=== PATIENT | male | born 1945 | race Caucasian/White ===

== ENCOUNTER → 2019-02-21 | Outpatient (CLI) | payer MEDICARE ==
[2019-02-21 16:21] LABS: LDL Cholesterol,Calculated 95.6 mg/dL (0.0-131.0); VLDL Calculation 15.4 mg/dL (5.00-40.00)
== END | disposition home or self-care (01) ==
LOC: LABWHC1 07:45
PROVIDERS: ATTEND Internal Medicine Nephrology
DX: E78.00 Pure hypercholesterolemia, unspecified (principal); I25.10 Atherosclerotic heart disease of native coronary artery without angina pectoris; I10 Essential (primary) hypertension; J43.8 Other emphysema; I49.1 Atrial premature depolarization; K22.70 Barrett's esophagus without dysplasia; E11.42 Type 2 diabetes mellitus with diabetic polyneuropathy; T46.6X5A Adverse effect of antihyperlipidemic and antiarteriosclerotic drugs, initial encounter; Z79.4 Long term (current) use of insulin; Z87.891 Personal history of nicotine dependence; Z98.61 Coronary angioplasty status
CPT/HCPCS: 36415; 80061; 84450; 84460

== ENCOUNTER → 2019-07-24 | Outpatient (CLI) | payer MEDICARE ==
[2019-07-24 11:17] LABS: Appearance,Urine Clear (Clear); Bilirubin,Urine Negative (Negative); Blood,Urine Negative (Negative); Color,Urine Yellow; Glucose,Urine (UA) Negative (Negative); Ketones,Urine Negative (Negative); Leukocyte Esterase,Urine Negative (Negative); Nitrite,Urine Negative (Negative); PH, Urine 6.5 (5.0-8.0); Protein,Urine Negative (Negative); Specific Gravity,Urine 1.013 (1.001-1.035); Urobilinogen,Urine <2.0 mg/dL (<2.0)
[2019-07-24 11:35] LABS: INR 0.9 (<1.2); Partial Thromboplastin Time 22.5 sec (22.0-30.0); Prothrombin Time 10.2 sec (9.0-12.0)
[2019-07-24 11:37] LABS: ALT 34 U/L (21-72); AST 26 U/L (17-59); African American GFR (CKD) >90 (>60 ml/min/1.73 sqM); Albumin 4.5 g/dL (3.5-5.0); Alkaline Phosphatase 72 U/L (38-126); Anion Gap 13 mmol/L; Blood Urea Nitrogen 17 mg/dL (9-20); Carbon Dioxide 23 mmol/L (22-30); Chloride 104 mmol/L (98-107); Glucose 138 mg/dL (74-99); Sodium 140 mmol/L (137-145); Total Bilirubin 0.5 mg/dL (0.2-1.3); Total Protein 7.5 g/dL (6.3-8.2)
[2019-07-24 13:45] LABS: HCT 45.9 % (39.0-53.0); HGB 15.1 gm/dL (13.0-17.5); MCH 31.7 pg (25.0-35.0); MCHC 32.8 g/dL (31.0-37.0); MCV 96.6 fL (80.0-100.0); Mean Platelet Volume 7.7; Platelet Count 295 k/uL (150-450); RBC 4.75 m/uL (4.30-5.90); RDW 12.8 % (11.5-15.5); WBC 8.5 k/uL (3.8-10.6)
== END | disposition home or self-care (01) ==
LOC: LABPAT 10:20
PROVIDERS: ATTEND Orthopaedic Surgery
DX: Z01.812 Encounter for preprocedural laboratory examination (principal); Z01.818 Encounter for other preprocedural examination; M17.11 Unilateral primary osteoarthritis, right knee
CPT/HCPCS: 80053; 81003; 85027; 85610; 85730; 87070; 93005

== ENCOUNTER 2019-08-18 10:07 | Day surgery (SDC) | payer MEDICARE ==
[2019-07-24 11:53] VITALS: BMI 28.8
[~2019-08-18 10:07] MED LIST: ACETAMINOPHEN TAB 500 MG TAB PO ONE; DEXAMETHASONE SOD PHOSPHATE 10 MG/ML 1 ML VIAL IV ONE; HYDROmorphone 0.5 MG/0.5 ML SYRINGE IVP PRN; LACTATED RINGERS 1,000 ML IV SCH; MELOXICAM 7.5 MG TAB PO ONE; MIDAZOLAM 2 MG/2 ML VIAL IV PRN; ONDANSETRON 4 MG/2 ML VIAL IVP ONE; ROPIVACAINE 246.25 MG, EPINEPHrine 0.5 MG, KETOROLAC 30 MG, cloNIDine HCL/PF 80 MCG, WA... MISCELLANE ONE; TRANEXAMIC ACID 1,000 MG in SODIUM CHLORIDE 0.9% 100 ML IVPB ONE; VANCOMYCIN 1,250 MG in SODIUM CHLORIDE 0.9% 250 ML IVPB ONE
[2019-08-18 10:57] LABS: Glucose,Whole Blood 120 mg/dL (75-99)
[2019-08-18] MEDS ORDERED: LIDOCAINE 1% 20 ML VIAL (10MG/ML) FOR IV START INTRADERMA ONE (11:00)
[2019-08-18] MEDS ORDERED: fentaNYL (PF) 50 MCG/ML 2 ML AMP IV ONE (11:31)
[2019-08-18] MEDS ORDERED: SODIUM CHLORIDE 0.9% 100 ML BAG ONE (12:38)
[2019-08-18] MEDS ORDERED: fentaNYL (PF) 50 MCG/ML 2 ML AMP ONE (12:38)
[2019-08-18] MEDS ORDERED: SUCCINYLCHOLINE CHLORIDE VIAL 200 MG/10 ML VIAL IV ONE (12:38)
[2019-08-18] MEDS ORDERED: PROPOFOL 10 MG/ML 20 ML VIAL IV ONE (12:38)
[2019-08-18] MEDS ORDERED: NEOSTIGMINE 1 MG/ML 10 ML VIAL ONE (12:38)
[2019-08-18] MEDS ORDERED: MIDAZOLAM 2 MG/2 ML VIAL ONE (12:38)
[2019-08-18] MEDS ORDERED: ROCURONIUM BROMIDE 10 MG/ML 10 ML VIAL IV ONE (12:38)
[2019-08-18] MEDS ORDERED: TRANEXAMIC ACID 1,000 MG/10 ML VIAL ONE (12:38)
[2019-08-18] MEDS ORDERED: LIDOCAINE 1% INJ 10MG/ML (20 ML MDV) ONE (12:38)
[2019-08-18] MEDS ORDERED: GLYCOPYRROLATE 0.2 MG/ML 2 ML VIAL ONE (12:38)
[2019-08-18] MEDS ORDERED: ROPIVACAINE 0.2%-NS ON-Q PUMP 1,090 MG, EMPTY PAIN BALL 1 EACH MISCELLANE PRN (12:39)
[2019-08-18] MEDS ORDERED: ceFAZolin 3,000 MG in SODIUM CHLORIDE 0.9% IRRIGATIO 3,000 ML IRRIGATION ONE (12:42)
--- NOTE | 2019-08-18 12:42 | P.ANPRN ---
Procedure Note - Anesthesia - Nerve Block Performed Right Adductor Canal Infusion Time Out Performed: Yes Date of Procedure: 08/18/19 Procedure Start Time: :30 Procedure Stop Time: :42 Location of Patient Procedure: PreOp Indication: Acute Post-Operative Pain, Requested by Surgeon Specifically requested for management of pain by DrKyle: Aleksandr Steward Sedation Type: Sedate with meaningful contact maintained Preparation: Sterile Prep Position: Supine Catheter Depth at Skin (cm): 6 Catheter: Indwelling Needle Types: Pajunk Needle Gauge: 18 Ultrasound used to visualize needle placement: Yes Ultrasound used to observe medication spread: Yes Injectate: 0.5% Ropivacaine (see comment for volume) (20 cc) Blood Aspirated: No Pain Paresthesia on Injection Noted: No Resistance on Injection: Normal Image Stored and Saved: Yes Events: Uneventful and Well Tolerated
[2019-08-18] MEDS ORDERED: SODIUM CHLORIDE 0.9% 100 ML with ceFAZolin 2,000 MG IV ONE ×2 (13:05)
[2019-08-18] MEDS ORDERED: LACTATED RINGERS 1,000 ML IV ONE (14:26)
--- NOTE | 2019-08-18 14:33 | P.OP ---
Date of Procedure: 08/18/19 Procedure(s) Performed: PREOPERATIVE DIAGNOSIS: Right knee severe osteoarthritis with genu varum POSTOPERATIVE DIAGNOSIS: Right knee severe osteoarthritis with genu varum OPERATION: Right knee cemented total replacement arthroplasty. ANESTHESIA: Spinal ESTIMATED BLOOD LOSS: 50 ml. HOME SALES SERVICE PROFESSIONAL: Ally Lawton PA-C (assistance with: patient positioning, retraction, exposure, hemostasis, leg positioning, implantation, irrigation, closure, dressing) COMPLICATIONS: None apparent. COMPONENTS IMPLANTED: Persona system from [employer] INDICATIONS: Mr. Cordero is a 74-year-old healthy male with a history of right knee osteoarthritis. The patient's knee is end-stage, and conservative management has failed. The operation of knee replacement has been discussed at length in the office, as well as potential risks and complications. These are inclusive of, but not limited to: bleeding, infection, scarring, discomfort, blood vessel and nerve damage, need for further surgery, failure to relieve symptoms, persistence, recurrence, or worsening of problems, loosening, dislocation, wear, blood clot, pulmonary embolism, , gait dysfunction, stiffness, and other risks as discussed in the office. The patient elects to proceed and the consent form has been signed. PROCEDURE: The patient was taken to the operating room and positioned on the operating room table in the supine position. Anesthesia was initiated. Care was taken to make sure that all pressure points were adequately padded. The operative lower extremity was prepped and draped in the usual aseptic fashion using ChloraPrep. Ioban drape was used for the case and the patient received intravenous antibiotics within one hour of the incision. A pneumotourniquet and leg estrada were used for the case. The limb was exsanguinated with an Esmarch bandage and the tourniquet was inflated to 350 mmHg. Time-out was called confirming the patient's identity, side, procedure and administration of antibiotics and tranexamic acid. The incision was then created midline directly over the knee, carried down through skin and into the subcutaneous tissues and down to fascia. Full thickness subcutaneous medial flap was developed. Medial parapatellar arthrotomy was performed and the interior of the knee was inspected. There was end-stage osteoarthritis of the knee with a mild to moderate genu varum type deformity. The fat pad was excised and proximal medial release on the tibia was completed using meticulous dissection and a curved osteotome. The anterior cruciate ligament was taken down. Note was made of significant attrition of the anterior and significant degenerative appearance of the cruciate ligaments. The exposure was excellent. The knee was flexed 90 degrees and the patella was everted. A spot was chosen on the femur approximately 1 cm anterior to the posterior cruciate ligament insertion and an intramedullary hole was created within the femur. The intramedullary guide was then set to 5 degrees of valgus. The distal cutting block was attached and pinned into position. An appropriate amount of distal femoral resection was set. The oscillating saw was then used to make the distal femoral cut. This cut was confirmed to be flat with the flat end of an osteotome. The retractors were placed around the tibia and the tibial surface was addressed. The angle and depth of resection was adjusted using an extramedullary cutting guide. The guide had a built-in 3 degree posterior slope cut. Once the cutting guide was adjusted appropriately and in line with the axis of the tibia and confirmed to be in good position in relation to the second metatarsal and transmalleolar axis, the tibial cut was then created with protection of the posterior neurovascular structures and the collateral ligaments. The tibial cut surface was removed and sized. Femoral sizing was then accomplished using anterior referencing. Care was taken to analyze the posterior condyles for signs of deficiency or severe wear, and adjustments to the guide were made, as appropriate. 3 degree external rotation pins were placed. The cutting jig for the femur was applied to these pins. The planned cuts were further analyzed prior to performing them with the oscillating saw. No femoral notching was produced. Bone fragments were removed and the cut surfaces were finished, as necessary, with a reciprocating saw. Spacer block technique was then used to confirm that the flexion and extension gaps were equal. Soft tissue releases and adjustment of the tibial and/or femoral cuts were made, as necessary, until the gaps were equal. This included release of the posterior cruciate ligament, which was excessively tight in this patient. The femur was then further finished for a posterior cruciate ligament substituting component. Patellar resurfacing was performed using a reamer. The size of the required patellar component was estimated and the patellar surface was then reamed down to a residual thickness which would recreate the [place] thickness with the component. The exact placement of the patellar component was adjusted for position based on preoperative x-rays and intraoperative findings. Prior to placing trial components, anesthetic solution consisting of ropivicaine with epinephrine, ketorolac, and clonidine was injected carefully and methodically in a grid pattern using aspiration technique into the soft tissue around the knee circumferentially, starting with the deeper tissues first and progressing to fascia, and then finally the skin/subcutaneous tissue. Particular care was taken when injecting the posterior capsule. The trial components were inserted. The tibial tray was allowed to self center and the patella was noted to track very well. The position of the tibial component was marked and the tibia was then finished for a stemmed tibial component. Cement was mixed on the back table and applied to the final components. Trial components were removed and the cut surfaces of the bone were pulse lavaged thoroughly and dried. Cement was then applied to the tibial surface and pressurized into the surface using finger pressurization technique. The tibial component was then applied and excess cement was removed after it was impacted securely and noted to be flush with the cut surface. In similar fashion, the cement was applied to the cut femoral surface, pressurized in using finger pressurization and the component was impacted into place. Excess cement was removed. The polyethylene spacer was then implanted and locked into position. The patellar component was then applied in similar technique and a patellar clamp was used to hold the patella in place as the cement hardened. Once the cement had fully hardened, the knee was reinspected. Any other cement extrusion was removed and final kinematic testing showed range of motion from 0 to 130 degrees with excellent stability, both medially and laterally and appropriate alignment of the leg. Patellar tracking was excellent. The knee was then thoroughly pulse lavaged with normal saline. The tourniquet was deflated and hemostasis was obtained with electrocautery and IV tranexamic acid, 1 g given at the start of the operation and 1 g at the start of closure. Closure was with #2 Ethibond in the fascia/capsule and supplemented with #2 Quill, 2-0 Vicryl suture was used for the subcutaneous tissues and 3-0 Quill for the skin. Dermabond/Steri-Strips were then applied. A lightly compressive dressing was applied using Webril and an Filemon wrap. The patient was then transferred to stretcher and taken to the recovery room in stable condition. Sponge and needle counts were correct.
[2019-08-18] MEDS ORDERED: MAGNESIUM HYDROXIDE 2,400 MG/10 ML CUP PO PRN (15:00)
[2019-08-18] MEDS ORDERED: NALOXONE 0.4 MG/ML 1 ML VIAL IV PRN (15:00)
[2019-08-18] MEDS ORDERED: ONDANSETRON 4 MG/2 ML VIAL IVP PRN (15:00)
[2019-08-18] MEDS ORDERED: HYDROmorphone 0.5 MG/0.5 ML SYRINGE IVP PRN ×3 (15:00)
[2019-08-18] MEDS ORDERED: HYDROcodone/APAP 7.5-325MG 1 EACH TAB PO PRN (15:00)
[2019-08-18] MEDS ORDERED: NA PHOS,M-B/NA PHOS,DI-BA 133 ML ENEMA RECTAL PRN (15:00)
[2019-08-18] MEDS ORDERED: TEMAZEPAM 15 MG CAP PO PRN (15:00)
[2019-08-18] MEDS ORDERED: BISACODYL 10 MG SUPP RECTAL PRN (15:00)
--- NOTE | 2019-08-18 15:20 | XR ---
EXAMINATION TYPE: XR knee limited RT DATE OF EXAM: 08/18/2019 COMPARISON: NONE TECHNIQUE: Two views submitted HISTORY: Post op FINDINGS: There is a prosthetic knee in near anatomic alignment. There is soft tissue edema and emphysema. Di ffuse osteopenia noted spurring along the upper margin of the patella. IMPRESSION: 1. Postoperative change. Appears in near-anatomic alignment
[2019-08-18 15:36] LABS: Glucose,Whole Blood 132 mg/dL (75-99)
[2019-08-18] MEDS: LACTATED RINGERS 1,000 ML IV SCH (15:49)
[2019-08-18] MEDS ORDERED: IPRATROPIUM-ALBUTEROL 3 ML NEB INHALATION PRN (19:19)
[2019-08-18 20:53] LABS: Glucose,Whole Blood 196 mg/dL (75-99)
[2019-08-18] MEDS ORDERED: SENNOSIDES-DOCUSATE SODIUM 1 EACH TAB PO SCH (21:00)
[2019-08-18] MEDS: ASPIRIN 325 MG TAB PO SCH (21:04)
[2019-08-18] MEDS: amLODIPine 2.5 MG TAB PO SCH (21:04)
[2019-08-18] MEDS: INSULIN ASPART (NovoLOG) 100 UNIT/ML VIAL SQ SCH (21:04)
[2019-08-18] MEDS: PANTOPRAZOLE 40 MG TABLET PO SCH (22:04)
--- NOTE | 2019-08-18 23:20 | P.CONS ---
History of Present Illness - Reason for Consult Consult date: 08/18/19 medical management of DM, htn, copd post operatively Requesting physician: Aleksandr Steward - Chief Complaint post right TKA - History of Present Illness 74 year old male with PMHx of DM, HTN, COPD presented for scheduled right total knee arthroplasty , tolerated procedure well, with no observed immediate post operative complications. He denies any chest pain , trouble breathing, headache, fever, chills, abd pain. Currently reports pain well tolerated. He tolerated PO intake. Review of Systems Pertinent positives as noted in HPI. All other systems were reviewed and are negative Past Medical History Past Medical History: Coronary Artery Disease (CAD), COPD, Diabetes Mellitus, GERD/Reflux, Hyperlipidemia, Hypertension, Pneumonia Additional Past Medical History / Comment(s): sinus arrythmia History of Any Multi-Drug Resistant Organisms: None Reported Past Surgical History: Heart Catheterization, Heart Catheterization With Stent, Orthopedic Surgery, Tonsillectomy Additional Past Surgical History / Comment(s): heart cath x4,heart stent x1,alexy knee arthroscopies,cervical fusion,lt wrist foreign matter removed,nasal repair,finger repairs Past Anesthesia/Blood Transfusion Reactions: No Reported Reaction Additional Past Anesthesia/Blood Transfusion Reaction / Comm: no hx blood transfusion Date of Last Stent Placement:: 2000 Past Psychological History: No Psychological Hx Reported Smoking Status: Former smoker Past Alcohol Use History: None Reported Additional Past Alcohol Use History / Comment(s): quit smoking 2000,smoked 35 yrs 2ppd Past Drug Use History: None Reported - Past Family History Mother Family Medical History: Congestive Heart Failure (CHF), Coronary Artery Disease (CAD), Diabetes Mellitus, Renal Disease Additional Family Medical History / Comment(s): CABG Father Family Medical History: Coronary Artery Disease (CAD) Additional Family Medical History / Comment(s): asbestos plaque on lungs,CABG Sister(s) Family Medical History: Cancer Additional Family Medical History / Comment(s): multiple myeloma Medications and Allergies Home Medications Medication Instructions Recorded Confirmed Type Aspirin 81 mg PO DAILY 07/24/19 08/18/19 History Lansoprazole 30 mg PO BID 07/24/19 08/18/19 History Metoprolol Succinate (ER) [Toprol 50 mg PO QAM 07/24/19 08/18/19 History Xl] Nitroglycerin Sl Tabs [Nitrostat] 0.4 mg SUBLINGUAL Q5M PRN 07/24/19 08/18/19 History Quinapril HCl [Accupril] 20 mg PO QAM 07/24/19 08/18/19 History amLODIPine [Norvasc] 2.5 mg PO BID 07/24/19 08/18/19 History metFORMIN HCL [Glucophage] 500 mg PO BID 07/24/19 08/18/19 History Multivitamins, Thera [Multivitamin 1 tab PO DAILY 07/28/19 08/18/19 History (formulary)] Aspirin 325 mg PO BID #1 tab 08/18/19 Rx HYDROcodone/APAP 7.5-325MG [[place] 1 - 2 tab PO Q4-6H PRN #50 tab 08/18/19 Rx 7.5-325] Rosuvastatin Calcium [Crestor] 5 mg PO WEEKLY 08/18/19 08/18/19 History Sennosides-Docusate Sodium 1 tab PO BID #60 tablet 08/18/19 Rx [Senokot-S] Allergies Allergy/AdvReac Type Severity Reaction Status Date / Time barley Allergy per alg Verified 08/18/19 10:21 testing bee venom protein (honey bee) Allergy Swelling Verified 08/18/19 10:21 corn Allergy per alg Verified 08/18/19 10:21 testing hops Allergy per alg Verified 08/18/19 10:21 testing insect venom Allergy Swelling Verified 08/18/19 10:21 shellfish derived Allergy Itching Verified 08/18/19 10:21 Sulfa (Sulfonamide Allergy Nausea & Verified 08/18/19 10:21 Antibiotics) Vomiting Physical Exam Vitals: Vital Signs Temp Pulse Pulse Resp BP BP Pulse Ox 08/18/19 17:48 100 133/72 08/18/19 17:34 97 143/82 08/18/19 17:03 78 128/65 08/18/19 16:47 73 137/75 08/18/19 16:32 78 146/81 08/18/19 16:17 75 127/77 08/18/19 16:10 73 16 142/76 92 L 08/18/19 16:03 77 142/76 08/18/19 15:45 60 18 147/75 96 08/18/19 15:30 60 16 145/69 100 08/18/19 15:15 71 16 133/63 100 08/18/19 15:09 18 100 08/18/19 15:00 97.0 F L 70 16 122/61 96 08/18/19 10:20 97 F L 66 16 132/81 94 L Intake and Output 08/18/19 08/18/19 08/18/19 06:59 14:59 22:59 Intake Total 1651 470 Output Total 50 Balance 1601 470 Intake: IV 1651 150 Oral 320 Output: Estimated Blood Loss 50 Other: Weight 88 kg Constitutional: No acute distress, conversant, pleasant Eyes: Anicteric sclerae, moist conjunctiva, no lid-lag Pupils equal round reactive to light ENMT: NC/AT Oropharynx clear, no erythema, exudates Neck: Supple, FROM, no masses, or JVD No carotid bruits No thyromegaly Lungs: Clear to auscultation Clear to percussion Normal respiratory effort, no accessory muscle use Cardiovascular: Heart regular in rate and rhythm, No murmurs, gallops, or rubs No peripheral edema Abdominal: Soft Nontender, no guarding, rebound or rigidity Abdomen moving with respiration Normoactive bowel sounds No hepatomegaly, No splenomegaly No palpable mass No abdominal wall hernia noted Skin: Normal temperature, tone, texture, turgor No induration No subcutaneous nodules No rash, lesions No ulcers Extremities: No digital cyanosis No clubbing Pedal pulses intact and symmetrical Radial pulses intact and symmetrical No calf tenderness Psychiatric: Alert and oriented to person, place and time Appropriate affect fair judgment Neuro Muscles Strength 5/5 in both upper extremities and left lower extremity , otherwise limited exam over right lower extremity due to surgery Sensation to light touch grossly present throughout Cranial nerves II-XII grossly intact No focal sensory deficits Lymphatics: no palpable cervical or supraclavicular , or inguinal lymph nodes Results Labs: Abnormal Lab Results - Last 24 Hours (Table) 08/18/19 08/18/19 Range/Units 10:46 15:33 POC Glucose (mg/dL) 120 H 132 H (75-99) mg/dL Assessment and Plan Assessment: 74-year-old male with history of diabetes, hypertension, COPD. Admitted for right total knee arthroplasty medicine consulted for postoperative management of diabetes and hypertension. Patient doing well tolerate the procedure well no observed immediate postoperative complications Plan: Right knee degenerative joint disease status post total knee arthroplasty postoperative day 0 DVT prophylaxis and pain management per orthopedics Diabetes mellitus slightly elevated blood sugar Patient on oral hypoglycemics, will hold for now. Hold metformin risk of lactic acidosis Start patient on insulin sliding scale Hypertension currently controlled Continue home medications COPD currently compensated and stable When necessary DuCeleste's Encourage incentive spirometry Check morning labs CBC and renal function and electrolytes code status , full code Thank you for allowing us to participate in the care of this patient. Do not hesitate to contact us with questions. Someone can be reached from the [facility] [place] hospitalist group at all hours of the day at [phone].
[2019-08-19] MEDS: LACTATED RINGERS 1,000 ML IV SCH ×2 (01:19→12:07)
[2019-08-19 07:15] LABS: Glucose,Whole Blood 121 mg/dL (75-99)
[2019-08-19] MEDS: INSULIN ASPART (NovoLOG) 100 UNIT/ML VIAL SQ SCH ×2 (07:18→12:07)
[2019-08-19 07:26] LABS: African American GFR (CKD) >90 (>60 ml/min/1.73 sqM); Anion Gap 9 mmol/L; Blood Urea Nitrogen 16 mg/dL (9-20); Calcium 8.9 mg/dL (8.4-10.2); Carbon Dioxide 25 mmol/L (22-30); Chloride 106 mmol/L (98-107); Glucose 121 mg/dL (74-99); Potassium 4.5 mmol/L (3.5-5.1); Sodium 140 mmol/L (137-145)
[2019-08-19 07:31] LABS: Basophils % (A) 0 %; Eosinophils # (A) 0.1 k/uL (0-0.7); Eosinophils % (A) 0 %; HCT 39.5 % (39.0-53.0); HGB 12.9 gm/dL (13.0-17.5); Lymphocytes # (A) 2.1 k/uL (1.0-4.8); Lymphocytes % (A) 13 %; MCH 31.8 pg (25.0-35.0); MCHC 32.5 g/dL (31.0-37.0); MCV 97.6 fL (80.0-100.0); Mean Platelet Volume 6.9; Monocytes # (A) 0.8 k/uL (0-1.0); Monocytes % (A) 5 %; Neutrophils # (A) 13.2 k/uL (1.3-7.7); Neutrophils % (A) 81 %; Platelet Count 239 k/uL (150-450); RBC 4.05 m/uL (4.30-5.90); RDW 12.7 % (11.5-15.5); WBC 16.4 k/uL (3.8-10.6)
[2019-08-19 07:54] VITALS: BP 121/69; PULSE 79; RESP 17; TEMP 98.7
[2019-08-19] MEDS ORDERED: LISINOPRIL 20 MG TAB PO SCH (09:00)
[2019-08-19] MEDS ORDERED: METOPROLOL SUCCINATE (ER) 50 MG TAB.ER.24H PO SCH (09:00)
[2019-08-19] MEDS ORDERED: MELOXICAM 7.5 MG TAB PO SCH (09:00)
[2019-08-19] MEDS: ASPIRIN 325 MG TAB PO SCH (09:28)
[2019-08-19] MEDS: amLODIPine 2.5 MG TAB PO SCH (09:30)
[2019-08-19] MEDS: PANTOPRAZOLE 40 MG TABLET PO SCH (09:30)
--- NOTE | 2019-08-19 10:20 | P.PN ---
Subjective Progress Note Date: 08/19/19 Patient was seen and examined at the bedside on 08/19. He reported no pain and was in good spirits. He denied any additional complaints and is eager to be discharged to continue with his daily activities. He denied chest pain, SOB, fever, chills, nausea, or vomiting. Objective - Vital Signs Vital signs: Vital Signs Temp 98.7 F 08/19/19 07:00 Pulse 79 08/19/19 07:00 Resp 17 08/19/19 07:00 BP 121/69 08/19/19 07:00 Pulse Ox 93 L 08/19/19 07:00 Intake & Output 08/18/19 08/19/19 08/19/19 18:59 06:59 18:59 Intake Total 2121 Output Total 50 Balance 2070 Weight 88 kg Intake: IV 1801 Oral 320 Output: Estimated Blood Loss 50 Other: Voiding Method Toilet # Voids 1 - Exam General: Non-toxic, in no acute distress, appears stated age, overweight HEENT: NC/AT, anicteric sclerae, moist conjunctiva, no lid-lag, PERRLA Cardiovascular: S1/S2 wnl, no murmurs, rubs, or gallops Lungs: Clear to auscultation, normal respiratory effort, no accessory muscle use Abdominal: Soft, non-tender, non-distended, no guarding, rebound, or rigidity Skin: Warm, dry Extremities: No edema or contractures, R knee post-surgical, dressing in place, clean and dry Psychiatric: Alert and oriented to person, place and time, appropriate affect Neuro: CN II-XII grossly intact, no focal neuro deficits - Labs CBC & Chem 7: 08/19/19 06:48 08/19/19 06:48 Labs: Abnormal Lab Results - Last 24 Hours (Table) 08/18/19 08/18/19 08/18/19 Range/Units 10:46 15:33 20:51 WBC (3.8-10.6) k/uL RBC (4.30-5.90) m/uL Hgb (13.0-17.5) gm/dL Neutrophils # (1.3-7.7) k/uL Glucose (74-99) mg/dL POC Glucose (mg/dL) 120 H 132 H 196 H (75-99) mg/dL 08/19/19 08/19/19 08/19/19 Range/Units 06:48 06:48 07:13 WBC 16.4 H (3.8-10.6) k/uL RBC 4.05 L (4.30-5.90) m/uL Hgb 12.9 L (13.0-17.5) gm/dL Neutrophils # 13.2 H (1.3-7.7) k/uL Glucose 121 H (74-99) mg/dL POC Glucose (mg/dL) 121 H (75-99) mg/dL Assessment and Plan Plan: R knee OA s/p total R knee arthroplasty POD # 1 -Management including pain control and DVT proph per orthopedic surgery team Leukocytosis, likely secondary to stress -No signs of infection at this time -Monitor for now Type 2 DM -C/w insulin sliding scale -Holding hypoglycemics HTN -Controlled, c/w home meds COPD -Duonebs prn CAD -C/w home meds
--- NOTE | 2019-08-19 11:15 | P.DS ---
Providers Expected date of discharge: 08/19/19 Attending physician: Aleksandr Steward Consults: 08/18/19 15:00 Consult Physician Routine Consulting Provider: Day Billings Consult Reason/Comments: Medical Management Do you want consulting provider notified?: Yes Primary care physician: Tushar Serrano - Discharge Diagnosis(es) (1) Primary localized osteoarthritis of right knee Current Visit: Yes Status: Acute (2) Status post total right knee replacement Current Visit: Yes Status: Acute Hospital Course: This is a 74-year-old male who was last seen with complaint of continued right knee pain. The patient has a known history of degenerative arthritis of the right knee and presents to discuss surgical options. After discussion and consideration the patient elects to proceed with total right knee arthroplasty. The patient is seen preoperatively by his primary care physician and cleared for surgery. The patient is admitted to [facility] for total right knee arthroplasty. The procedures performed without complication or sequelae. Aleksandra ent is doing well postoperatively. Vital signs are stable at discharge. Labs are stable at discharge. the patient is ambulating well with walker with minimal assistance. The patient is discharged to home on postop day #1 pending medical clearance. Please see orders and refer to the med rec for accurate list of medications. Plan - Discharge Summary Discharge Rx Participant: No New Discharge Prescriptions: New Aspirin 325 mg PO BID #1 tab HYDROcodone/APAP 7.5-325MG [[place] 7.5-325] 1 - 2 tab PO Q4-6H PRN #50 tab PRN Reason: Pain Sennosides-Docusate Sodium [Senokot-S] 1 tab PO BID #60 tablet No Action Quinapril HCl [Accupril] 20 mg PO QAM Nitroglycerin Sl Tabs [Nitrostat] 0.4 mg SUBLINGUAL Q5M PRN PRN Reason: Chest Pain Metoprolol Succinate (ER) [Toprol Xl] 50 mg PO QAM metFORMIN HCL [Glucophage] 500 mg PO BID Lansoprazole 30 mg PO BID Aspirin 81 mg PO DAILY amLODIPine [Norvasc] 2.5 mg PO BID Multivitamins, Thera [Multivitamin (formulary)] 1 tab PO DAILY Rosuvastatin Calcium [Crestor] 5 mg PO SUTH Discharge Medication List Aspirin 81 mg PO DAILY 07/24/19 [History] Lansoprazole 30 mg PO BID 07/24/19 [History] Metoprolol Succinate (ER) [Toprol Xl] 50 mg PO QAM 07/24/19 [History] Nitroglycerin Sl Tabs [Nitrostat] 0.4 mg SUBLINGUAL Q5M PRN 07/24/19 [History] Quinapril HCl [Accupril] 20 mg PO QAM 07/24/19 [History] amLODIPine [Norvasc] 2.5 mg PO BID 07/24/19 [History] metFORMIN HCL [Glucophage] 500 mg PO BID 07/24/19 [History] Multivitamins, Thera [Multivitamin (formulary)] 1 tab PO DAILY 07/28/19 [History] Aspirin 325 mg PO BID #1 tab 08/18/19 [Rx] HYDROcodone/APAP 7.5-325MG [[place] 7.5-325] 1 - 2 tab PO Q4-6H PRN #50 tab 08/18/19 [Rx] Rosuvastatin Calcium [Crestor] 5 mg PO SUTH 08/18/19 [History] Sennosides-Docusate Sodium [Senokot-S] 1 tab PO BID #60 tablet 08/18/19 [Rx] Follow up Appointment(s)/Referral(s): Ally Lawton PAC [PHYSICIAN AIRCRAFT SERVICER] - 09/03/19 2:00 pm Tushar Serrano MD [Primary Care Provider] - 08/26/19 9:20 am (Please bring your discharge paperwork to your appointment.) Activity/Diet/Wound Care/Special Instructions: May bear weight as tolerated. May shower if no drainage at 48hrs post op. Discharge Disposition: HOME SELF-CARE
[2019-08-19 11:38] LABS: Glucose,Whole Blood 121 mg/dL (75-99)
--- NOTE | 2019-08-19 15:16 | P.PN ---
Progress Note - Text 08/19 645am 4-year-old male status post total knee replacement. Patient has an On-Q pump for postop pain control with a VAS of 1. Plan to continue On-Q pump infusion
[2019-08-21] MEDS ORDERED: ATORVASTATIN 10 MG TAB PO SCH (09:00)
[2019-08-25] MEDS ORDERED: ATORVASTATIN 10 MG TAB PO SCH (09:00)
== END 2019-08-19 15:17 | disposition home or self-care (01) ==
LOC: OR 10:07 → 4SSUR 14:55 → OR 08-19 15:17
PROVIDERS: ATTEND Orthopaedic Surgery
DX: M17.11 Unilateral primary osteoarthritis, right knee (principal); M21.161 Varus deformity, not elsewhere classified, right knee; I25.10 Atherosclerotic heart disease of native coronary artery without angina pectoris; I11.9 Hypertensive heart disease without heart failure; Z87.891 Personal history of nicotine dependence; E78.5 Hyperlipidemia, unspecified; J98.4 Other disorders of lung; E11.42 Type 2 diabetes mellitus with diabetic polyneuropathy; K21.9 Gastro-esophageal reflux disease without esophagitis; J44.9 Chronic obstructive pulmonary disease, unspecified; K22.70 Barrett's esophagus without dysplasia; H91.90 Unspecified hearing loss, unspecified ear; J43.9 Emphysema, unspecified; Z97.3 Presence of spectacles and contact lenses; I49.9 Cardiac arrhythmia, unspecified; Z68.28 Body mass index [BMI] 28.0-28.9, adult; R05 Cough; Z87.01 Personal history of pneumonia (recurrent); Z77.090 Contact with and (suspected) exposure to asbestos; Z87.442 Personal history of urinary calculi; Z95.5 Presence of coronary angioplasty implant and graft; Z80.7 Family history of other malignant neoplasms of lymphoid, hematopoietic and related tissues; Z83.3 Family history of diabetes mellitus; Z82.49 Family history of ischemic heart disease and other diseases of the circulatory system; Z84.1 Family history of disorders of kidney and ureter; Z79.84 Long term (current) use of oral hypoglycemic drugs; Z79.82 Long term (current) use of aspirin; Z79.899 Other long term (current) drug therapy; Z91.030 Bee allergy status; Z91.041 Radiographic dye allergy status; Z91.038 Other insect allergy status; Z91.013 Allergy to seafood; Z88.2 Allergy status to sulfonamides; Z91.018 Allergy to other foods
CPT/HCPCS: 97161; 64448; 76942; 80048; 85025; 88300; 73560; 27447; C1713; C1776; J2250; J0171; J3370; J1100; J0690 ×3; J2405; J3010; J1885; J2795 ×2; J0735

== ENCOUNTER 2019-08-24 11:27 | Emergency (ER) | payer MEDICARE ==
[2019-08-24 11:36] LABS: Glucose,Whole Blood 145 mg/dL (75-99)
[2019-08-24 11:52] LABS: Glucose,Whole Blood 161 mg/dL (75-99)
--- NOTE | 2019-08-24 11:57 | ED ---
General Adult HPI - General Chief complaint: Recheck/Abnormal Lab/Rx Stated complaint: Hyperglycemia Time Seen by Provider: 08/24/19 11:41 Source: patient Mode of arrival: ambulatory Limitations: no limitations - History of Present Illness Initial comments: Patient presents to the ED with his for evaluation. Patient states that he is 6 days status post right knee replacement surgery. Patient states that his blood sugars readings have been elevated since his surgery. Patient states that his highest reading was just prior to arrival to the ED this morning, and it was 218 at that time. Patient states that he ate some oatmeal with sugar just prior to checking his blood sugar this morning. Patient's Accu-Chek on arrival to the ED is 145. Patient states that he only takes metformin for management of his type 2 diabetes. Patient denies medication noncompliance, fever or chills, headache, chest pain, dyspnea, cough or cold symptoms, dizziness, abdominal pain, nausea/vomiting/diarrhea, dysuria or urinary symptoms, surgical wound redness or drainage, or any other symptoms or complaints. - Related Data Home Medications Medication Instructions Recorded Confirmed Aspirin 81 mg PO DAILY 07/24/19 08/18/19 Lansoprazole 30 mg PO BID 07/24/19 08/18/19 Metoprolol Succinate (ER) [Toprol 50 mg PO QAM 07/24/19 08/18/19 Xl] Nitroglycerin Sl Tabs [Nitrostat] 0.4 mg SUBLINGUAL Q5M PRN 07/24/19 08/18/19 Quinapril HCl [Accupril] 20 mg PO QAM 07/24/19 08/18/19 amLODIPine [Norvasc] 2.5 mg PO BID 07/24/19 08/18/19 metFORMIN HCL [Glucophage] 500 mg PO BID 07/24/19 08/18/19 Multivitamins, Thera [Multivitamin 1 tab PO DAILY 07/28/19 08/18/19 (formulary)] Rosuvastatin Calcium [Crestor] 5 mg PO SUTH 08/18/19 08/19/19 Previous Rx's Medication Instructions Recorded Aspirin 325 mg PO BID #1 tab 08/18/19 HYDROcodone/APAP 7.5-325MG [Berino 1 - 2 tab PO Q4-6H PRN #50 tab 08/18/19 7.5-325] Sennosides-Docusate Sodium 1 tab PO BID #60 tablet 08/18/19 [Senokot-S] Allergies Allergy/AdvReac Type Severity Reaction Status Date / Time barley Allergy per alg Verified 08/24/19 11:34 testing bee venom protein (honey bee) Allergy Swelling Verified 08/24/19 11:34 corn Allergy per alg Verified 08/24/19 11:34 testing hops Allergy per alg Verified 08/24/19 11:34 testing insect venom Allergy Swelling Verified 08/24/19 11:34 shellfish derived Allergy Itching Verified 08/24/19 11:34 Sulfa (Sulfonamide Allergy Nausea & Verified 08/24/19 11:34 Antibiotics) Vomiting Review of Systems ROS Statement: Those systems with pertinent positive or pertinent negative responses have been documented in the HPI. ROS Other: All systems not noted in ROS Statement are negative. Past Medical History Past Medical History: Coronary Artery Disease (CAD), Diabetes Mellitus, Hyperlipidemia, Hypertension Additional Past Medical History / Comment(s): back pain History of Any Multi-Drug Resistant Organisms: MRSA Date of last positivie culture/infection: 2018 MDRO Source:: unknown Past Surgical History: Adenoidectomy, Heart Catheterization With Stent, Tonsillectomy Additional Past Surgical History / Comment(s): neck fusion Past Psychological History: No Psychological Hx Reported Smoking Status: Former smoker Past Alcohol Use History: None Reported Past Drug Use History: None Reported General Exam Limitations: no limitations General appearance: alert, in no apparent distress Head exam: Present: atraumatic, normocephalic Eye exam: Present: normal appearance, EOMI ENT exam: Present: mucous membranes moist Respiratory exam: Present: normal lung sounds bilaterally. Absent: respiratory distress, wheezes, rales, rhonchi Cardiovascular Exam: Present: regular rate, normal rhythm, normal heart sounds, other (Normal radial pulses bilaterally) GI/Abdominal exam: Present: soft. Absent: distended, tenderness Extremities exam: Present: other (Right knee surgical wound has no evidence of infection; there is no erythema or wound drainage noted). Absent: calf tenderness Neurological exam: Present: alert, oriented X3. Absent: motor sensory deficit Skin exam: Present: warm, dry, normal color Course Vital Signs 08/24/19 08/24/19 11:30 12:46 Temperature 97.7 F Pulse Rate 97 Respiratory 18 20 Rate Blood Pressure 127/67 O2 Sat by Pulse 98 Oximetry Medical Decision Making - Medical Decision Making Patient's blood glucose has now improved to 115. Patient's serum acetone is negative. Patient's UA is normal. Patient's vital signs are stable. Patient denies development of any new symptoms while in the ED. I do not feel that any further testing or ED intervention is needed at this time. Patient was counseled about hyperglycemia, and he was instructed to keep a log of his blood sugar readings. Patient states that he has a follow-up appointment scheduled to see his primary care provider in 2 days. Patient was clearly explained return and follow-up instructions. Patient feels comfortable going home with his at this time. - Lab Data Result diagrams: 08/24/19 12:22 08/24/19 12:22 Lab Results 08/24/19 08/24/19 08/24/19 Range/Units 11:34 11:50 12:22 WBC (3.8-10.6) k/uL RBC (4.30-5.90) m/uL Hgb (13.0-17.5) gm/dL Hct (39.0-53.0) % MCV (80.0-100.0) fL MCH (25.0-35.0) pg MCHC (31.0-37.0) g/dL RDW (11.5-15.5) % Plt Count (150-450) k/uL Neutrophils % % Lymphocytes % % Monocytes % % Eosinophils % % Basophils % % Neutrophils # (1.3-7.7) k/uL Lymphocytes # (1.0-4.8) k/uL Monocytes # (0-1.0) k/uL Eosinophils # (0-0.7) k/uL Basophils # (0-0.2) k/uL Sodium 136 L (137-145) mmol/L Potassium 5.0 (3.5-5.1) mmol/L Chloride 103 (98-107) mmol/L Carbon Dioxide 23 (22-30) mmol/L Anion Gap 10 mmol/L BUN 16 (9-20) mg/dL Creatinine 0.80 (0.66-1.25) mg/dL Est GFR (CKD-EPI)AfAm >90 (>60 ml/min/1.73 sqM) Est GFR (CKD-EPI)NonAf 90 (>60 ml/min/1.73 sqM) Glucose 115 H (74-99) mg/dL POC Glucose (mg/dL) 145 H 161 H (75-99) mg/dL POC Glu [employer] Tina Calcium 9.5 (8.4-10.2) mg/dL Urine Color Urine Appearance (Clear) Urine pH (5.0-8.0) Ur Specific [place] (1.001-1.035) Urine Protein (Negative) Urine Glucose (UA) (Negative) Urine Ketones (Negative) Urine Blood (Negative) Urine Nitrite (Negative) Urine Bilirubin (Negative) Urine Urobilinogen (<2.0) mg/dL Ur Leukocyte Esterase (Negative) Acetone, Qual Negative (Negative) 08/24/19 08/24/19 Range/Units 12:22 12:49 WBC 10.9 H (3.8-10.6) k/uL RBC 3.95 L (4.30-5.90) m/uL Hgb 12.8 L (13.0-17.5) gm/dL Hct 37.9 L (39.0-53.0) % MCV 96.0 (80.0-100.0) fL MCH 32.3 (25.0-35.0) pg MCHC 33.7 (31.0-37.0) g/dL RDW 12.7 (11.5-15.5) % Plt Count 344 (150-450) k/uL Neutrophils % 72 % Lymphocytes % 15 % Monocytes % 7 % Eosinophils % 3 % Basophils % 1 % Neutrophils # 7.8 H (1.3-7.7) k/uL Lymphocytes # 1.6 (1.0-4.8) k/uL Monocytes # 0.7 (0-1.0) k/uL Eosinophils # 0.3 (0-0.7) k/uL Basophils # 0.1 (0-0.2) k/uL Sodium (137-145) mmol/L Potassium (3.5-5.1) mmol/L Chloride (98-107) mmol/L Carbon Dioxide (22-30) mmol/L Anion Gap mmol/L BUN (9-20) mg/dL Creatinine (0.66-1.25) mg/dL Est GFR (CKD-EPI)AfAm (>60 ml/min/1.73 sqM) Est GFR (CKD-EPI)NonAf (>60 ml/min/1.73 sqM) Glucose (74-99) mg/dL POC Glucose (mg/dL) (75-99) mg/dL POC Glu [employer] Calcium (8.4-10.2) mg/dL Urine Color Yellow Urine Appearance Clear (Clear) Urine pH 6.0 (5.0-8.0) Ur Specific [place] 1.009 (1.001-1.035) Urine Protein Negative (Negative) Urine Glucose (UA) Negative (Negative) Urine Ketones Negative (Negative) Urine Blood Negative (Negative) Urine Nitrite Negative (Negative) Urine Bilirubin Negative (Negative) Urine Urobilinogen <2.0 (<2.0) mg/dL Ur Leukocyte Esterase Negative (Negative) Acetone, Qual (Negative) Disposition Clinical Impression: Hyperglycemia Disposition: HOME SELF-CARE Condition: Stable Instructions (If sedation given, give patient instructions): Diabetic Hyperglycemia (ED) Is patient prescribed a controlled substance at d/c from ED?: No Referrals: Tushar Serrano MD [Primary Care Provider] - 1-2 days Time of Disposition: 13:16
[2019-08-24 12:36] LABS: Basophils # (A) 0.1 k/uL (0-0.2); Basophils % (A) 1 %; Eosinophils # (A) 0.3 k/uL (0-0.7); Eosinophils % (A) 3 %; HCT 37.9 % (39.0-53.0); HGB 12.8 gm/dL (13.0-17.5); Lymphocytes # (A) 1.6 k/uL (1.0-4.8); Lymphocytes % (A) 15 %; MCH 32.3 pg (25.0-35.0); MCHC 33.7 g/dL (31.0-37.0); Mean Platelet Volume 6.7; Monocytes # (A) 0.7 k/uL (0-1.0); Monocytes % (A) 7 %; Neutrophils # (A) 7.8 k/uL (1.3-7.7); Neutrophils % (A) 72 %; Platelet Count 344 k/uL (150-450); RBC 3.95 m/uL (4.30-5.90); RDW 12.7 % (11.5-15.5); WBC 10.9 k/uL (3.8-10.6)
[2019-08-24 12:46] LABS: African American GFR (CKD) >90 (>60 ml/min/1.73 sqM); Anion Gap 10 mmol/L; Blood Urea Nitrogen 16 mg/dL (9-20); Calcium 9.5 mg/dL (8.4-10.2); Carbon Dioxide 23 mmol/L (22-30); Chloride 103 mmol/L (98-107); Glucose 115 mg/dL (74-99); Sodium 136 mmol/L (137-145)
[2019-08-24 12:56] LABS: Appearance,Urine Clear (Clear); Bilirubin,Urine Negative (Negative); Blood,Urine Negative (Negative); Color,Urine Yellow; Glucose,Urine (UA) Negative (Negative); Ketones,Urine Negative (Negative); Leukocyte Esterase,Urine Negative (Negative); Nitrite,Urine Negative (Negative); Protein,Urine Negative (Negative); Specific Gravity,Urine 1.009 (1.001-1.035); Urobilinogen,Urine <2.0 mg/dL (<2.0)
[2019-08-24 13:24] VITALS: BP 126/74; PULSE 84; RESP 18; TEMP 98.1
== END 2019-08-24 13:24 | disposition home or self-care (01) ==
LOC: EC 11:27
DX: E11.65 Type 2 diabetes mellitus with hyperglycemia (principal); I25.10 Atherosclerotic heart disease of native coronary artery without angina pectoris; I10 Essential (primary) hypertension; E78.5 Hyperlipidemia, unspecified; Z79.84 Long term (current) use of oral hypoglycemic drugs; Z79.82 Long term (current) use of aspirin; Z79.899 Other long term (current) drug therapy; Z91.018 Allergy to other foods; Z91.030 Bee allergy status; Z91.013 Allergy to seafood; Z88.2 Allergy status to sulfonamides; Z87.891 Personal history of nicotine dependence; Z95.5 Presence of coronary angioplasty implant and graft; Z98.1 Arthrodesis status; Z96.651 Presence of right artificial knee joint
CPT/HCPCS: 36415; 80048; 81003; 82009; 85025; 99284